=== PATIENT | female | born 1985 | race Caucasian/White ===

== ENCOUNTER 2020-10-06 12:12 | Outpatient (REF) | payer OTHER, SELFPAY ==
--- NOTE | 2020-10-06 11:30 | PAPFT_PTH ---
PATIENT: Suzette Bautista LOC: [facility] U#:[id number] AGE/SX: 35/F ROOM: RE10/06/[address]: Mary Gamboa : 1985 BED: DIS: 10/06/2020 SPEC #: [id number] RECD: 10/06/20 12:56 STATUS: MICHAELArlet REDerek #: [id number] LEONARDO: 10/06/20 11:[address]: Mary Gamboa DEPT: [facility] Cytology RECD BY: Melisa Apple ENTERED: 10/06/20 12:56 SP TYPE: PAPFT OTHR DR: Kelly Harris Tissues: 1 - CX/ENDOCX FOR PAP SMEARS Procedures: PAP THIN PREP/[facility] Screening HPV DNA PROBE Comments: [id number]
== END 2020-10-06 12:32 ==
LOC: NCHCN 12:12
PROVIDERS: PCP Nurse Practitioner; Visit Provider Family Medicine
DX: Z00.00 Encounter for general adult medical examination without abnormal findings (principal); Z12.4 Encounter for screening for malignant neoplasm of cervix; Z11.51 Encounter for screening for human papillomavirus (HPV); Z01.419 Encounter for gynecological examination (general) (routine) without abnormal findings
CPT/HCPCS: 88142; 87624